=== PATIENT | female | born 1970 | race Caucasian/White ===

== ENCOUNTER 2020-12-14 16:37 | Outpatient (CLI) | payer OTHER | END 2020-12-14 16:38 | disposition short-term general hospital (02) | LOC: EMS 16:37 | PROVIDERS: ATTEND Physician Assistant | DX: S01.81XA Laceration without foreign body of other part of head, initial encounter (principal); S41.031A Puncture wound without foreign body of right shoulder, initial encounter; R51.9 Headache, unspecified; W11.XXXA Fall on and from ladder, initial encounter; W25.XXXA Contact with sharp glass, initial encounter; Y92.009 Unspecified place in unspecified non-institutional (private) residence as the place of occurrence of the external cause | CPT/HCPCS: A0425; A0427 ==

== ENCOUNTER 2023-06-15 07:45 | Outpatient (CLI) | payer OTHER ==
--- NOTE | 2023-06-16 08:41 | XRAY Report ---
PROCEDURE: Foot 3+V RT INDICATIONS: FOOT PAIN, RIGHT TECHNIQUE: 3 views of the foot were acquired. COMPARISON: None. FINDINGS: Bones: No fractures or dislocations. No suspicious bony lesions. Mild osteophytic changes. Calcane al spurring. Soft tissues: No tibiotalar joint effusion. Achilles tendon appears normal. IMPRESSION: 1. No acute bony abnormality. 2. Mild osteoarthritis and calcaneal spurring. Reviewed by: Jorge A Marina MD on 06/16/2023 8:40 AM PDT Approved by: Jorge A Marina MD on 06/16/2023 8:40 AM PDT Station ID: [id number]
== END 2023-06-15 08:00 | disposition home or self-care (01) ==
LOC: DI.N 07:45
PROVIDERS: ATTEND Specialist
DX: M19.071 Primary osteoarthritis, right ankle and foot (principal); M77.31 Calcaneal spur, right foot